=== PATIENT | female | born 1990 | race Hispanic/Latino ===

== ENCOUNTER 2017-02-27 14:56 | Emergency (ER) | payer MEDICAID ==
--- NOTE | 2017-02-27 15:27 | ED PDOC ---
Arrival/HPI - General Time Seen by Provider: 02/27/17 15:20 Historian: Patient - History of Present Illness Narrative History of Present Illness (Text): 02/27/17 15:27 Patient was not in the room 02/27/17 15:47 This 26 yo female presents to this ED by BLS asking for DETOX. Patient stated she was sent by DY department to get herself DETOX from heroin. Patient stated she restarted again using Heroin IV since last night. She says she used 2 bags. She denies other complains. Time/Duration: Other (see HPI) Context: Home Past Medical History - Provider Review Nursing Documentation Reviewed: Yes Family/Social History - Physician Review Nursing Documentation Reviewed: Yes Family/Social History: No Known Family HX Review of Systems - Review of Systems Constitutional: Normal. absent: Fatigue, Weight Change, Fevers, Night Sweats Eyes: Normal ENT: Normal Respiratory: Normal. absent: SOB, Cough Cardiovascular: Normal. absent: Chest Pain, Palpitations Gastrointestinal: Normal. absent: Abdominal Pain, Nausea, Vomiting Genitourinary Female: Normal. absent: Dysuria, Frequency Musculoskeletal: Normal Skin: Normal Neurological: Normal Endocrine: Normal Hemo/Lymphatic: Normal Psychiatric: Normal. absent: Depression, Suicidal Ideation Physical Exam Vital Signs Temp Pulse Resp BP Pulse Ox 02/27/17 15:37 98.2 F 96 H 18 138/76 99 Temperature: Afebrile Blood Pressure: Normal Pulse: Regular Respiratory Rate: Normal Appearance: Positive for: Well-Appearing, Non-Toxic, Comfortable Pain Distress: None Mental Status: Positive for: Alert and Oriented X 3 - Systems Exam Head: Present: Atraumatic, Normocephalic Pupils: Present: PERRL Extroacular Muscles: Present: EOMI Conjunctiva: Present: Normal Mouth: Present: Moist Mucous Membranes Neck: Present: Normal Range of Motion Respiratory/Chest: Present: Clear to Auscultation, Good Air Exchange. No: Respiratory Distress, Accessory Muscle Use Cardiovascular: Present: Regular Rate and Rhythm, Normal S1, S2. No: Murmurs Abdomen: Present: Normal Bowel Sounds. No: Tenderness, Distention, Peritoneal Signs Back: Present: Normal Inspection Upper Extremity: Present: Normal Inspection, Normal ROM, Neurovascularly Intact , Capillary Refill < 2s. No: Cyanosis, Edema Lower Extremity: Present: Normal Inspection, NORMAL PULSES, Normal ROM. No: Edema Neurological: Present: GCS=15, CN II-XII Intact, Speech Normal Skin: Present: Warm, Dry, Normal Color. No: Rashes Psychiatric: Present: Alert, Oriented x 3, Normal Insight, Normal Concentration. No: Suicidal Ideation, Homicidal Ideation, Delusional, Hallucinations Medical Decision Making ED Course and Treatment: 02/27/17 16:00 I spoke with Pooja Auto Tester regarding patient request for DETOX. She said she will see patient. 02/27/17 16:20 Patient stated she had called [facility] DETOX department, and she told there was not beds. She also call [facility] DETOX department, who instructed patient to go to ED , then she will be admitted in their DETOX unit. 02/27/17 17:12 bulb farmworker came to take patient to patient's mother home. Patient is aware to be at [facility] DETOX unit tomorrow at 8 am. Re-evaluation Time: 16:21 Reassessment Condition: Re-examined, Unchanged Disposition/Present on Arrival - Present on Arrival Any Indicators Present on Arrival: No History of DVT/PE: No History of Uncontrolled Diabetes: No Urinary Catheter: No History of Decub. Ulcer: No - Disposition Have Diagnosis and Disposition been Completed?: Yes Diagnosis: Opioid abuse Disposition: HOME/ ROUTINE Disposition Time: 17:13 Patient Plan: Discharge Patient Problems: Current Active Problems Problem Status Onset Opioid abuse Acute Condition: GOOD Discharge Instructions (ExitCare): Narcotic Abuse (ED) Additional Instructions: See DETOX department at [facility] in the morning.
[2017-02-27 15:38] VITALS: TEMP 98.2
[2017-02-27 15:51] VITALS: BMI 25.8
[2017-02-27 17:20] VITALS: BP 136/70; PULSE 92; RESP 16; O2SAT 98
== END 2017-02-27 17:20 | disposition home or self-care (01) ==
LOC: ED 14:56
DX: F11.10 Opioid abuse, uncomplicated (principal)